=== PATIENT | female | born 1960 | race Caucasian/White ===

== ENCOUNTER 2020-08-05 11:12 | Inpatient (IN) ==
[2020-08-06] MEDS: *HR* OxyCODONE/APAP 5/325 TABLET PO PRN (15:35)
[2020-08-06] MEDS: Insulin LISPRO 300 UNITS/3 ML VIAL SQ SCH ×2 (17:11→20:15)
[2020-08-06] MEDS: *HR* Metformin 500 MG TABLET PO SCH (17:11)
[2020-08-06] MEDS: Ascorbic Acid 500 MG TABLET PO SCH (20:16)
[2020-08-07] MEDS: *HR* OxyCODONE/APAP 5/325 TABLET PO PRN ×2 (01:22→17:11)
[2020-08-07 05:32] LABS: Basophils # 0.1 K/mcL (0.0-0.2); Basophils % 0.6 %; Eosinophils # 0.5 K/mcL (0.0-0.6); Hematocrit 22.8 % (35.3-44.9); Hemoglobin 7.5 g/dL (11.5-15.4); Immature Granulocytes % 1.9 % (0-4); Lymphocytes # 2.9 K/mcL (0.6-4.6); Lymphocytes % 25.6 %; Mean Corpuscular HGB Conc 32.9 g/dL (31.6-35.5); Mean Corpuscular Hemoglobin 30.4 pg (28.0-33.3); Mean Corpuscular Volume 92.3 fL (83.0-100.0); Monocytes # 0.9 K/mcL (0.0-1.3); Neutrophils # 6.8 K/mcL (1.6-8.9); Platelet Count 309 K/mcL (140-400); Red Blood Count 2.47 M/mcL (3.82-4.97); Red Cell Distribution Width 12.9 % (11.5-14.5); Segmented Neutrophils % 59.9 %; White Blood Count 11.3 K/mcL (4.3-11.1)
[2020-08-07 05:48] LABS: BUN/Creatinine Ratio 16 (6-26); Blood Urea Nitrogen 10 mg/dL (8-23); Carbon Dioxide 34 mEq/L (23-29); Chloride 100 mEq/L (98-107); Glucose 147 mg/dL (70-105); Magnesium 1.9 mg/dL (1.6-2.6); Osmolality,Calculated 292 (280-300); Potassium 4.4 mEq/L (3.5-5.1); Sodium 140 mEq/L (136-145); eGFR For African Americans > 60 (> 60); eGFR For Non-African Americans > 60 (> 60)
[2020-08-07] MEDS: Insulin LISPRO 300 UNITS/3 ML VIAL SQ SCH ×4 (08:47→21:15)
[2020-08-07] MEDS: Loratadine 10 MG TABLET PO SCH (08:49)
[2020-08-07] MEDS: *HR* Metformin 500 MG TABLET PO SCH ×2 (08:49→16:52)
[2020-08-07] MEDS: Magnesium Oxide 400 MG TABLET PO SCH (08:49)
[2020-08-07] MEDS: Cholecalciferol (D-3) 1,000 UNIT (25MCG) TABLET PO SCH (08:49)
[2020-08-07] MEDS: Psyllium 1 PACKET POWD.PACK PO SCH (08:49)
[2020-08-07] MEDS: Multivit/Ca/Min/Fe/FA 1 TAB TABLET PO SCH (08:49)
[2020-08-07] MEDS: Ascorbic Acid 500 MG TABLET PO SCH (21:16)
[2020-08-08] MEDS: *HR* OxyCODONE/APAP 5/325 TABLET PO PRN ×2 (06:01→17:06)
[2020-08-08 06:29] LABS: Basophils # 0.1 K/mcL (0.0-0.2); Basophils % 0.5 %; Eosinophils # 0.5 K/mcL (0.0-0.6); Eosinophils % 4.4 %; Hematocrit 23.6 % (35.3-44.9); Hemoglobin 7.7 g/dL (11.5-15.4); Lymphocytes # 2.3 K/mcL (0.6-4.6); Lymphocytes % 20.5 %; Mean Corpuscular HGB Conc 32.6 g/dL (31.6-35.5); Mean Corpuscular Hemoglobin 30.8 pg (28.0-33.3); Mean Corpuscular Volume 94.4 fL (83.0-100.0); Mean Platelet Volume 9.2 fL (9.4-12.4); Monocytes # 0.9 K/mcL (0.0-1.3); Monocytes % 8.4 %; Nucleated Red Blood Cells 0.7 /100 WBC (0); Platelet Count 366 K/mcL (140-400); Red Cell Distribution Width 13.2 % (11.5-14.5); Segmented Neutrophils % 64.2 %
[2020-08-08 06:44] LABS: BUN/Creatinine Ratio 17 (6-26); Blood Urea Nitrogen 11 mg/dL (8-23); Calcium 9.5 mg/dL (8.6-10.3); Carbon Dioxide 33 mEq/L (23-29); Chloride 98 mEq/L (98-107); Glucose 152 mg/dL (70-105); Osmolality,Calculated 288 (280-300); Potassium 3.9 mEq/L (3.5-5.1); Sodium 138 mEq/L (136-145); eGFR For African Americans > 60 (> 60); eGFR For Non-African Americans > 60 (> 60)
[2020-08-08] MEDS: Insulin LISPRO 300 UNITS/3 ML VIAL SQ SCH ×4 (08:19→20:03)
[2020-08-08] MEDS: Multivit/Ca/Min/Fe/FA 1 TAB TABLET PO SCH (08:43)
[2020-08-08] MEDS: Cholecalciferol (D-3) 1,000 UNIT (25MCG) TABLET PO SCH (08:43)
[2020-08-08] MEDS: Loratadine 10 MG TABLET PO SCH (08:44)
[2020-08-08] MEDS: Magnesium Oxide 400 MG TABLET PO SCH (08:44)
[2020-08-08] MEDS: *HR* Metformin 500 MG TABLET PO SCH ×2 (08:44→17:06)
[2020-08-08] MEDS: Psyllium 1 PACKET POWD.PACK PO SCH (08:44)
[2020-08-08] MEDS: Ascorbic Acid 500 MG TABLET PO SCH (19:59)
[2020-08-09] MEDS: Cholecalciferol (D-3) 1,000 UNIT (25MCG) TABLET PO SCH (08:17)
[2020-08-09] MEDS: Loratadine 10 MG TABLET PO SCH (08:17)
[2020-08-09] MEDS: Magnesium Oxide 400 MG TABLET PO SCH (08:17)
[2020-08-09] MEDS: Psyllium 1 PACKET POWD.PACK PO SCH (08:17)
[2020-08-09] MEDS: Multivit/Ca/Min/Fe/FA 1 TAB TABLET PO SCH (08:17)
[2020-08-09] MEDS: *HR* Metformin 500 MG TABLET PO SCH ×2 (08:18→17:07)
[2020-08-09] MEDS: Insulin LISPRO 300 UNITS/3 ML VIAL SQ SCH ×4 (08:19→22:10)
[2020-08-09] MEDS: *HR* OxyCODONE/APAP 5/325 TABLET PO PRN ×2 (14:40→22:11)
[2020-08-09] MEDS: cephALEXin 500 MG CAPSULE PO SCH (22:10)
[2020-08-09] MEDS: Ascorbic Acid 500 MG TABLET PO SCH (22:11)
[2020-08-10] MEDS: *HR* OxyCODONE/APAP 5/325 TABLET PO PRN (04:33)
[2020-08-10 05:23] LABS: Hematocrit 25.9 % (35.3-44.9); Hemoglobin 8.1 g/dL (11.5-15.4); Mean Corpuscular HGB Conc 31.3 g/dL (31.6-35.5); Mean Corpuscular Hemoglobin 29.7 pg (28.0-33.3); Mean Corpuscular Volume 94.9 fL (83.0-100.0); Mean Platelet Volume 8.5 fL (9.4-12.4); Platelet Count 408 K/mcL (140-400); Red Blood Count 2.73 M/mcL (3.82-4.97); Red Cell Distribution Width 13.6 % (11.5-14.5)
[2020-08-10 05:42] LABS: Alanine Aminotransferase 17 Units/L (7-52); Albumin 3.8 g/dL (3.5-5.7); Albumin/Globulin Ratio 1.5 (1.1-2.2); Alkaline Phosphatase 61 Units/L (34-104); Aspartate Amino Transferase 16 Units/L (13-39); BUN/Creatinine Ratio 20 (6-26); Bilirubin,Total 0.6 mg/dL (0.3-1.0); Blood Urea Nitrogen 13 mg/dL (8-23); Calcium 9.3 mg/dL (8.6-10.3); Carbon Dioxide 34 mEq/L (23-29); Chloride 99 mEq/L (98-107); Globulin 2.6 g/dL (2.4-3.5); Glucose 142 mg/dL (70-105); Magnesium 1.9 mg/dL (1.6-2.6); Osmolality,Calculated 291 (280-300); Potassium 4.1 mEq/L (3.5-5.1); Sodium 139 mEq/L (136-145); Total Protein 6.4 g/dL (6.4-8.9); eGFR For African Americans > 60 (> 60); eGFR For Non-African Americans > 60 (> 60)
[2020-08-10 07:38] VITALS: BP 109/68
[2020-08-10] MEDS: Psyllium 1 PACKET POWD.PACK PO SCH (09:20)
[2020-08-10] MEDS: *HR* Metformin 500 MG TABLET PO SCH (09:21)
[2020-08-10] MEDS: cephALEXin 500 MG CAPSULE PO SCH (09:21)
[2020-08-10] MEDS: Loratadine 10 MG TABLET PO SCH (09:22)
[2020-08-10] MEDS: Cholecalciferol (D-3) 1,000 UNIT (25MCG) TABLET PO SCH (09:22)
[2020-08-10] MEDS: Multivit/Ca/Min/Fe/FA 1 TAB TABLET PO SCH (09:22)
[2020-08-10] MEDS: Insulin LISPRO 300 UNITS/3 ML VIAL SQ SCH ×2 (09:26→12:20)
[2020-08-10 09:54] LABS: % Iron Saturation 11 % (15-50); Iron 39 mcg/dL (50-170); Transferrin 265 mg/dL (203-362)
[2020-08-10] MEDS ORDERED: Ascorbic Acid 500 MG TABLET PO SCH (10:00)
[2020-08-10] MEDS: Magnesium Oxide 400 MG TABLET PO SCH (13:09)
== END 2020-08-10 13:33 | disposition home or self-care (01) | DRG 949 ==
LOC: INPGRE 08-06 14:08
PROVIDERS: ADMIT Family Medicine; ATTEND Family Medicine